=== PATIENT | female | born 1985 | race Caucasian/White ===

== ENCOUNTER 2020-11-03 05:33 | Day surgery (SDC) | payer BC ==
[~2020-11-03] VITALS: Ht 171 cm; Wt 61.1 kg
[2020-11-03] VITALS (12 sets, daily range): BP systolic 123–142; BP diastolic 71–89
[2020-11-03] MEDS ORDERED: NS Irrig 2000ml IRRIG ONE (05:34)
[2020-11-03] MEDS ORDERED: LR 1000ml ONE (05:34)
[2020-11-03] MEDS ORDERED: Sterile Water Irrig 2000ml IRRIG ONE (05:34)
[2020-11-03] MEDS ORDERED: [UNRECOGNIZED DRUG - OTHER] PO (06:01)
[2020-11-03] MEDS ORDERED: ceFAZolin sod 1 GM in NS 55 ML IVPB ONE (07:00)
--- NOTE | 2020-11-03 07:21 | Anethesia Preoperative Eval ---
Anesthesia Pre-op PMH/ROS General Date of Evaluation: Nov 03, 2020 Anesthesiologist: Omid ASA Score: ASA 1 Mallampati Score Class I : Soft palate, uvula, fauces, pillars visible Class II: Soft palate, uvula, fauces visible Class III: Soft palate, base of uvula visible Class IV: Only hard plate visible Mallampati Classification: Class II Surgeon: Feli Diagnosis: Right ovarian cyst Surgical Procedure: laparoscopic right ovarian cystectomy Anesthesia History: none Family History: no anesthesia problems Allergies: Coded Allergies: [place] (Verified Allergy, Severe, 11/01/20) DRY SPOTS Uncoded Allergies: chlorine (Allergy, Severe, 11/03/20) dry spots, headache Medications: see eMAR Patient NPO?: Yes NPO Date: Nov 03, 2020 NPO Time: 00:00 Past Medical History Cardiovascular: Denies: HTN, CAD, NH, valve dz, arrhythmia, other Pulmonary: Denies: asthma, COPD, [place], other Gastrointestinal/Genitourinary: Reports: other - endometriosis; Denies: GERD, CRI, ESRD Neurologic/Psychiatric: Denies: dementia, CVA, depression/anxiety, TIA, other Endocrine: Denies: DM, hypothyroidism, steroids, other HEENT: Denies: cataract (L), cataract (R), glaucoma, [place] (L), [place] (R), other Hematology/Immune: Denies: anemia, DVT, bleeding disorder, other Musculoskeletal/Integumentary: Denies: OA, RA, DJD, DDD, edema, other PSxH Narrative: lap appy Anesthesia Pre-op Phys. Exam Physician Exam Last Vital Signs Date Time Temp Pulse Resp B/P (MAP) Pulse Ox O2 Delivery O2 Flow Rate FiO2 11/03/20 05:59 97.4 61 18 127/77 98 Room Air Constitutional: NAD Cardiovascular: RRR Respiratory: CTA Airway Exam Mallampati Score: Class II MO: full ROM: full Anesthesia Pre-op A/P Labs see chart Urine Test Test 11/03/20 05:45 Urine HCG, Qualitative Negative (NEGATIVE) Risk Assessment & Plan Assessment: ASA I Plan: GA Status Change Before Surgery: No Pre-Antibiotics Drug: Cefoxitin 1g Given Within 1 Hr of Incision: Yes Fe Anne MD Nov 03, 2020 07:21
[2020-11-03] MEDS ORDERED: cefOXitin 1gm Inj ONE (07:26)
[2020-11-03] MEDS ORDERED: Rocuronium Bromide 50mg/5ml Inj IV ONE (07:26)
[2020-11-03] MEDS ORDERED: fentaNYL 100 mcg/2 mL IV ONE (07:27)
[2020-11-03] MEDS ORDERED: Midazolam 2mg/2ml Inj ONE (07:27)
[2020-11-03] MEDS ORDERED: Lidocaine 1% MPF 10mg/ml 5ml ONE (07:27)
[2020-11-03] MEDS ORDERED: Metoclopramide 10mg/2ml Inj ONE (07:29)
[2020-11-03] MEDS ORDERED: Ketorolac 30mg Inj ONE (07:30)
--- NOTE | 2020-11-03 07:46 | Pre-Procedure Note/Attestation ---
Pre-Procedure Note/Attestation Complete Prior to Procedure Procedure Narrative: Laparoscopic ovarian cystectomy, posssible salpingoopherectomy,, hysteroscopy possible dilation and curettage Indications for Procedure Pre-Operative Diagnosis: ovarian cyst with low level echoes- probable endometrioma, right lower quadrant pain Attestation I attest that I discussed the nature of the procedure; its benefits; risks and complications; and alternatives (and the risks and benefits of such alternatives), prior to the procedure, with the patient (or the patient's legal volunteer patient representative). I attest that, if there was a reasonable possibility of needing a blood transfusion, the patient (or the patient's legal volunteer patient representative) was given the [place] [employer] standardized written summary, pursuant to the [place] Blood Safety Act ([place] Health and Safety Code # 1645, as amended). I attest that I re-evaluated the patient just prior to the surgery and that there has been no change in the patient's H&P, except as documented below: Chaya Edmond MD Nov 03, 2020 07:46
[2020-11-03] MEDS ORDERED: Ropivacaine 5mg/ml Vial 30ml INJ ONE (07:49)
[2020-11-03] MEDS ORDERED: DiphenhydrAMINE 50mg/ml Inj IVP PRN ×2 (08:00→08:45)
[2020-11-03] MEDS ORDERED: HYDROmorphone 1mg/ml Carpuject SUBQ PRN (08:00)
[2020-11-03] MEDS ORDERED: D5 1/2NS 1,000 ML IV SCH (08:00)
[2020-11-03] MEDS ORDERED: Metoclopramide 10mg/2ml Inj IVP PRN ×2 (08:00→08:45)
[2020-11-03] MEDS ORDERED: HYDROcodone/Acetamin 5/325 tab ORAL PRN (08:00)
[2020-11-03] MEDS ORDERED: Tylenol #3 tab (300mg/30mg) ORAL PRN (08:00)
[2020-11-03] MEDS ORDERED: Midazolam 2mg/2ml Inj IVP PRN (08:45)
[2020-11-03] MEDS ORDERED: LORazepam Inj 2mg/ml 1ml IV PRN (08:45)
[2020-11-03] MEDS ORDERED: Labetalol 5mg/ml 20ml vial IV PRN (08:45)
[2020-11-03] MEDS ORDERED: Ketorolac 30mg Inj IV PRN (08:45)
[2020-11-03] MEDS ORDERED: LR 1000ml 1,000 ML IVLG SCH (08:45)
[2020-11-03] MEDS ORDERED: fentaNYL 100 mcg/2 mL IV PRN (08:45)
[2020-11-03] MEDS ORDERED: Hydromorphone 0.5mg/0.5ml inj IVP PRN (08:45)
--- NOTE | 2020-11-03 09:31 | Brief Operative Note ---
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
--- NOTE | 2020-11-03 09:40 | Immediate Post-Op Evaluation ---
Immediate Post-Op Evalulation Immediate Post-Op Evalulation Procedure: Laparoscopic right ovarian cystectomy, d&c, hysteroscopy Date of Evaluation: Nov 03, 2020 Time of Evaluation: 09:40 IV Fluids: 800 Blood Products: 0 Estimated Blood Loss: min Urinary Output: 200 Blood Pressure Systolic: 125 Blood Pressure Diastolic: 76 Pulse Rate: 64 Respiratory Rate: 16 O2 Sat by Pulse Oximetry: 99 Temperature (Fahrenheit): 97.1 Pain Score (1-10): 0 Nausea: No Vomiting: No Complications 0 Patient Status: awake, reacts, patent, none Hydration Status: adequate Drug: cefoxitin 1g Given Within 1 Hr of Incision: Yes Fe Anne MD Nov 03, 2020 09:40
--- NOTE | 2020-11-03 09:42 | 48 Hour Post Anesthesia Eval ---
Post Anesthesia Evaluation Procedure: Laparoscopic right ovarian cystectomy, d&c, hysteroscopy Date of Evaluation: Nov 03, 2020 Airway: patent Nausea: No Vomiting: No Pain Intensity: 0 Hydration Status: adequate Cardiopulmonary Status: at baseline Mental Status/LOC: patient returned to baseline Post-Anesthesia Complications: 0 Follow-up care needed: ready to discharge Fe Anne MD Nov 03, 2020 09:42
--- NOTE | 2020-11-03 16:14 | Operative Note - Dictated ---
DATE OF OPERATION: 11/03/2020 PREOPERATIVE DIAGNOSIS: Right complex ovarian cyst, probable endometrioma. 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 ANESTHESIA: General. SURGEON: Chaya Edmond MD GRAPHIC COORDINATOR: Terri Knox MD ESTIMATED BLOOD LOSS: Minimal. ANESTHESIOLOGIST: Dr. Anne. ANESTHESIA: General endotracheal. FINDINGS: Nonadherent left 6 cm adnexal mass. No excrescences. Liver and appendix within normal limits. Right ovary, bilateral tubes and uterus within normal limits. Uterine cavity within normal limits. PROCEDURE IN DETAIL: After ensuring informed consent, patient was taken to the operating room where general anesthesia was induced. Patient was sterilely prepped and draped. Speculum was placed in the vagina. Cervix was dilated to an 8 Hegar dilator. Hysteroscope was placed inside the uterine cavity. Uterine cavity was distended with normal saline. Uterine cavity was normal. Manipulator was placed inside the uterine cavity. It was a Humi type manipulator. Attention was turned to the abdomen where a small incision was made inside the umbilicus after infiltration with Xylocaine. Next, Veress needle was placed inside the peritoneal cavity and intraperitoneal placement was confirmed with the low opening pressures. Incision was made in the left lateral after infiltration with Xylocaine and a 5 millimeter trocar was placed under direct visualization. Next, the suprapubic area was infiltrated with Xylocaine and a 10 millimeter trocar was placed there. Pelvis was explored. There was a 6 cm left ovarian mass. No adhesions, no excrescences, no nodules visible. There was a very small left-sided paratubal cyst. Next, ovary was grasped with a pickup with teeth and ovarian stroma peeled away from the cyst, creating a window. Using suction global climate change analyst, the cyst with hydrodissected almost completely; however, it was more adherent at the hilum of the ovary and needed to be grasped. However, because it was so full, it was impossible to grasp it, so using a laparoscopic needle some contents of the cyst was suctioned off which was approximately 1 mL and then the cyst was grasped and both bluntly and sharply dissected off of the hilum of the ovary. A 10 mm bag was placed through the 10 mm trocar and the cyst was placed inside the bag and removed from the body cavity of the patient. Next, pelvis was copiously irrigated. After this, the left ovary was explored and excellent hemostasis was assured with the bipolar. Next, liver was looked at as well as the appendix and both were found to be within normal limits. Pelvis was copiously irrigated. The irrigant was suctioned off. At the end of the procedure, all trocars were removed under direct visualization with no bleeding observed. All instrument and lap counts were correct x2. The patient was taken to the recovery area extubated and in stable condition. Chaya Edmond M.D. DR: Rosie JOB#: [id number] CC:
== END 2020-11-03 13:05 | disposition home or self-care (01) ==
LOC: SUR 05:33
DX: D27.1 Benign neoplasm of left ovary (principal); Z90.89 Acquired absence of other organs; Z91.018 Allergy to other foods; Z91.048 Other nonmedicinal substance allergy status
CPT/HCPCS: 49322; 58662; 81025; 94003; J0694; J1100; J1170; J1885; J2250; J2405; J2704; J2765; J2795; J3010; J7120; U0004; 94150